=== PATIENT | female | born 1960 | race Caucasian/White ===

== ENCOUNTER → 2019-10-07 | Outpatient (CLI) | payer BC ==
--- NOTE | 2019-10-07 16:37 | RAD ---
EXAM: Bilateral knees, standing view. HISTORY: Pain with weightbearing. COMPARISON: 11/07/2017. FINDINGS: A frontal standing view both knees is obtained. There is severe right greater than left medial compartment joint space narrowing with subchondral sclerosis, subchondral cyst formation and spurring. There is mild bilateral lateral compartment spurring. There is right greater than left genu varus. No fracture is seen. IMPRESSION: 1. 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 These findings have progressed compared to the prior study. 2. No acute osseous finding. Electronically signed by: Charlette Abdalla MD (10/07/2019 4:34 PM) [id number]
== END ==
LOC: RAD 12:36
PROVIDERS: ATTEND Orthopaedic Surgery Sports Medicine
DX: M17.0 Bilateral primary osteoarthritis of knee (principal); M21.162 Varus deformity, not elsewhere classified, left knee; M21.161 Varus deformity, not elsewhere classified, right knee
CPT/HCPCS: 73565